=== PATIENT | female | born 1960 | race Caucasian/White ===

== ENCOUNTER → 2018-03-11 | Outpatient (CLI) | payer BC ==
[2018-03-11 19:01] LABS: CALCIUM 9.9 mg/dL (8.4-10.2); CREATININE, serum 0.8 mg/dL (0.52-1.25); POTASSIUM 5.4 mmol/L (3.4-5.0)
== END ==
LOC: ZCOL.LAB 16:16
PROVIDERS: Family Medicine
DX: I10 Essential (primary) hypertension (principal)

== ENCOUNTER → 2018-06-15 | Outpatient (CLI) | payer BC ==
[2018-06-15 17:16] LABS: CREATININE, serum 0.74 mg/dL (0.52-1.25); POTASSIUM 4.7 mmol/L (3.4-5.0)
== END ==
LOC: ZCOL.LAB 16:17
PROVIDERS: Family Medicine
DX: I10 Essential (primary) hypertension (principal)

== ENCOUNTER → 2018-11-25 | Outpatient (CLI) | payer BC ==
[2018-11-25 21:59] LABS: COLLECTION METHOD CLEAN CATCH
[2018-11-25 22:08] LABS: PH 5 (5-8); URINE APPEARANCE Hazy; URINE BACTERIA None Seen /hpf; URINE BILIRUBIN Negative (NEGATIVE); URINE BLOOD 2+ (NEGATIVE); URINE COLOR Straw; URINE GLUCOSE Negative (NEGATIVE); URINE KETONE Negative (NEGATIVE); URINE LEUKOCYTE ESTERASE 1+ (NEGATIVE); URINE NITRATE Negative (NEGATIVE); URINE PROTEIN(semi-quant) Negative (NEGATIVE); URINE UROBILINOGEN Negative (NEGATIVE)
== END ==
LOC: ZCOL.LAB 20:04
PROVIDERS: Family Medicine
DX: R42 Dizziness and giddiness (principal)

== ENCOUNTER 2019-02-22 08:07 | Day surgery (SDC) | payer BC ==
[~2019-02-22] VITALS: Ht 172.7 cm; Wt 100.0 kg
[2019-02-22 08:54] VITALS: BP 150/101; PULSE 69; TEMP 97.7
[2019-02-22] MEDS ORDERED: HCTZ 25MG TAB25 MG PO (09:00)
[2019-02-22] MEDS ORDERED: XANAX .25M0.25 MG/TA PO (09:02)
[2019-02-22 10:20] VITALS: BP 130/95; PULSE 62; TEMP 97.6
--- NOTE | 2019-02-22 10:20 | NUR ---
PATIENT TRANSPORTED PER CART FROM GI SUITE ACCOMPANIED BY ENDO STAFFF. PATIENT AMBULATES FROM CART TO CHAIR WITH STEADY GAIT. MONITORS REAPPLIED. VSS. PATIENT ALERT AND TALKING WITH STAFF. DENIES NAUSEA AND DISCOMFORT.
[2019-02-22 10:30] VITALS: BP 131/93; PULSE 59
--- NOTE | 2019-02-22 10:30 | NUR ---
VSS. PATIENT DENIES NAUSEA AND DISCOMFORT. PATIENT SLOWLY DRINKING CRANBERRY JUICE. PATIENT ALERT AND TALKING WITH STAFF.
[2019-02-22 10:45] VITALS: BP 134/88; PULSE 61
[2019-02-22 11:00] VITALS: BP 136/96; PULSE 63
--- NOTE | 2019-02-22 11:00 | NUR ---
PATIENT BLOOD PRESSURE 136/98. PATIENT TO CHECK BLOOD PRESSURE AT HOME THIS AFTERNOON. PATIENT DENIES NAUSEA AND DISCFOMFORT. PATIENT STATES READY TO GO HOME.
--- NOTE | 2019-02-22 11:17 | NUR ---
VSS. PATIENT CONTINUES DENIES NAUSEA AND DISCOMFORT. PATIENT ALERT TALKING WITH STAFF.
[2019-02-22 11:25] VITALS: TEMP 97
--- NOTE | 2019-02-22 11:25 | NUR ---
PATIENT DISCHARGED PER WHEELCHAIR TO [facility]. WITH DISCHARGE PACKET.
--- NOTE | 2019-02-22 11:33 | NUR ---
DISCHARGE INSTRUCTIONS GIVEN VERBAL AND DISCHARGE PACKET GIVEN. QUESTIONS ANSWERED AND PATIENT VIOCED UNDERSTANDING. PATIENT DRINKS ALL OF CRANBERRY JUICE. IV DC'C WITH TIP INTACT AND PRESSURE APPLIED. PATIENT CHANGES INTO CLOTHES AND WAITING FOR RIDE.
== END 2019-02-22 11:25 | disposition home or self-care (01) ==
LOC: SDCO 08:07
DX: Z12.11 Encounter for screening for malignant neoplasm of colon (principal); K63.89 Other specified diseases of intestine; I10 Essential (primary) hypertension; Z90.710 Acquired absence of both cervix and uterus; Z80.0 Family history of malignant neoplasm of digestive organs; Z86.010 Personal history of colon polyps; Z90.49 Acquired absence of other specified parts of digestive tract; Z90.722 Acquired absence of ovaries, bilateral; Z90.79 Acquired absence of other genital organ(s)
CPT/HCPCS: J2704; J7030